=== PATIENT | male | born 2005 | race African-American/Black ===

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

== ENCOUNTER 2023-07-27 19:39 | Emergency (ER) | payer MEDICAID ==
[~2023-07-27] VITALS: Ht 172.7 cm; Wt 72.7 kg
[2023-07-27 20:26] VITALS: BP 115/79; PULSE 71; RESP 16; TEMP 97.4; O2SAT 97
[2023-07-27] MEDS: cefTRIAXone SOD 1,000 MG VL IM ONE (21:09)
[2023-07-27] MEDS: DexAMETHasone SOD PHOS 10MG/1ML VIAL INJ IM ONE (21:09)
[2023-07-27 21:42] LABS: Basophils # (auto) 0 10 ^3/uL (0-0.2); Basophils % (auto) 0.4 % (0.0-2.0); Eosinophils # (auto) 0.2 10 ^3/uL (0-0.8); Eosinophils % (auto) 1.7 % (0.0-7.0); Hematocrit 47.1 % (41.0-53.0); Hemoglobin 15.7 g/dL (13.5-17.5); Lymphocytes # (auto) 2.3 10 ^3/uL (0.4-5.4); Lymphocytes % (auto) 19.2 % (10.0-50.0); Mean Corpuscular Hemoglobin 27.8 pg (28.0-32.0); Mean Corpuscular Hgb Conc. 33.3 g/dL (32.0-36.0); Mean Corpuscular Volume 83.4 fL (80.0-100.0); Monocytes # (auto) 1.2 10 ^3/uL (0-1.3); Monocytes % (auto) 10.1 % (0.0-12.0); Neutrophils # (auto) 8.2 10 ^3/uL (1.6-8.6); Neutrophils % (auto) 68.6 % (37.0-80.0); Nucleated Red Blood Cells % 0.1 %; Red Blood Cells 5.65 10^6/uL (4.5-5.90); Red Cell Distribution Width 12.7 % (11.8-14.3); White Blood Cell 11.9 10^3/uL (4.4-10.8)
[2023-07-27 21:50] LABS: Chloride 105 mmol/L (98-107); Potassium 3.9 mmol/L (3.5-5.1); Sodium 139 mmol/L (136-145)
[2023-07-27 21:51] LABS: Anion Gap 4 (5-15); Carbon Dioxide 30 mmol/L (20-30)
[2023-07-27 21:56] LABS: BUN/Creatinine Ratio 7.1 (10.0-20.0); Blood Urea Nitrogen 8 mg/dL (9-23); Glucose 93 mg/dL (74-106)
[2023-07-27] MEDS ORDERED: PRED20TA2 PO (22:38)
[2023-07-27] MEDS ORDERED: AMOX875T4 PO (22:38)
[2023-07-27] MEDS ORDERED: ALBUAER3 IN (22:38)
== END 2023-07-27 22:50 | disposition home or self-care (01) ==
LOC: ER 19:39
DX: J06.9 Acute upper respiratory infection, unspecified (principal); J45.909 Unspecified asthma, uncomplicated; G80.9 Cerebral palsy, unspecified
CPT/HCPCS: 36415; 71046; 80048; 85025; 85379; 96372; 99284; J0696; J1100